=== PATIENT | male | born 1950 | race Two or more races ===

== ENCOUNTER → 2021-03-08 11:13 | Outpatient (CLI) | payer OTHER | END | disposition home or self-care (01) | LOC: LAB 11:13 | PROVIDERS: ATTEND Urology | DX: R97.20 Elevated prostate specific antigen [PSA] (principal) ==

== ENCOUNTER 2021-03-26 06:46 | Outpatient (CLI) | payer OTHER | END 2021-03-26 06:59 | disposition home or self-care (01) | LOC: SONOGRAMA 06:46 | PROVIDERS: ATTEND Urology | DX: C61 Malignant neoplasm of prostate (principal); D29.1 Benign neoplasm of prostate; R97.20 Elevated prostate specific antigen [PSA] ==

== ENCOUNTER 2021-05-03 08:04 | Outpatient (CLI) | payer OTHER ==
[2021-06-02] MEDS ORDERED: AVAPRO150 MG PO (10:35)
[2021-06-02] MEDS ORDERED: TAMS0.4C PO (10:35)
[2021-06-25] MEDS ORDERED: FUSION PLUS CA1 EACH PO (09:04)
== END 2021-05-03 08:05 | disposition home or self-care (01) ==
LOC: NUCLEAR 08:04
PROVIDERS: ATTEND Urology
DX: C61 Malignant neoplasm of prostate (principal); N20.0 Calculus of kidney; N39.0 Urinary tract infection, site not specified
CPT/HCPCS: 78803; A9503

== ENCOUNTER 2021-06-09 07:00 | Day surgery (SDC) | payer OTHER ==
[~2021-06-09 07:00] MED LIST: AVAPRO150 MG PO; TAMS0.4C PO
[2021-06-25] MEDS ORDERED: FUSION PLUS CA1 EACH PO (09:04)
== END 2021-06-10 00:30 | disposition home or self-care (01) ==
LOC: CIR.AMB 07:00
PROVIDERS: ATTEND Urology
DX: N20.1 Calculus of ureter (principal); Z20.822 Contact with and (suspected) exposure to COVID-19

== ENCOUNTER 2021-06-30 05:46 | Inpatient (IN) | payer OTHER ==
[~2021-06-30] VITALS: Ht 172.7 cm; Wt 79.4 kg
[~2021-06-30 05:46] MED LIST changes: +FUSION PLUS CA1 EACH PO
== END 2021-07-02 12:08 | disposition home or self-care (01) | DRG 707 ==
LOC: CIR.AMB 05:46 → SURG 13:59 → O/R 13:59 → SURG 14:08
PROVIDERS: ADMIT Urology; ATTEND Urology
PROC: 07TC0ZZ Resection of Pelvis Lymphatic, Open Approach (ICD-10-PCS; 2021-06-30)
PROC: 0VT30ZZ Resection of Bilateral Seminal Vesicles, Open Approach (ICD-10-PCS; 2021-06-30)
PROC: 0TQ60ZZ Repair Right Ureter, Open Approach (ICD-10-PCS; 2021-06-30)
PROC: 0VT00ZZ Resection of Prostate, Open Approach (ICD-10-PCS; principal; 2021-06-30 07:00)
DX: C61 Malignant neoplasm of prostate (principal); N20.1 Calculus of ureter; I10 Essential (primary) hypertension; Z20.822 Contact with and (suspected) exposure to COVID-19

== ENCOUNTER 2021-07-12 06:22 | Outpatient (CLI) | payer OTHER | END 2021-07-12 06:23 | disposition home or self-care (01) | LOC: LAB 06:22 | PROVIDERS: ATTEND Urology | DX: N20.0 Calculus of kidney (principal); C61 Malignant neoplasm of prostate; N30.00 Acute cystitis without hematuria ==

== ENCOUNTER 2021-07-27 06:31 | Outpatient (CLI) | payer OTHER | END 2021-07-27 06:32 | disposition home or self-care (01) | LOC: LAB 06:31 | PROVIDERS: ATTEND Urology | DX: C61 Malignant neoplasm of prostate (principal) ==

== ENCOUNTER → 2021-08-19 06:18 | Outpatient (CLI) | payer OTHER | END | disposition home or self-care (01) | LOC: LAB 06:18 | PROVIDERS: ATTEND Urology | DX: C61 Malignant neoplasm of prostate (principal); N30.00 Acute cystitis without hematuria ==

== ENCOUNTER → 2022-03-17 08:00 | Outpatient (CLI) | payer OTHER ==
[~2022-03-17] VITALS: Ht 172.7 cm; Wt 79.4 kg
[~2022-03-17 08:00] MED LIST changes: +CRESTOR5 MG PO
== END | disposition home or self-care (01) ==
LOC: LAB 08:00 → ADM 12:45 → CIR.AMB 03-23 09:15 → EDSTATUS 03-23 12:45
PROVIDERS: ATTEND Surgery
DX: Z20.828 Contact with and (suspected) exposure to other viral communicable diseases (principal); Z01.818 Encounter for other preprocedural examination

== ENCOUNTER 2022-03-23 08:03 | Emergency (ER) | payer OTHER ==
[~2022-03-23] VITALS: Ht 172.7 cm; Wt 75.3 kg
== END 2022-03-23 15:13 ==
LOC: ER 08:03
DX: I10 Essential (primary) hypertension (principal); Z20.822 Contact with and (suspected) exposure to COVID-19; E78.00 Pure hypercholesterolemia, unspecified

== ENCOUNTER 2022-09-21 05:58 | Day surgery (SDC) | payer OTHER ==
[~2022-09-21] VITALS: Ht 172.7 cm; Wt 78.0 kg
[~2022-09-21 05:58] MED LIST changes: +CHLORTHALIDONE25 MG PO; +DOXAZOSIN MESYLA1 MG PO
[2022-09-21] MEDS ORDERED: POLY119PG PO (15:24)
[2022-09-21] MEDS ORDERED: ULTRACET PO (15:24)
== END 2022-09-21 19:00 | disposition home or self-care (01) ==
LOC: CIR.AMB 05:58
PROVIDERS: ATTEND Surgery
DX: K40.90 Unilateral inguinal hernia, without obstruction or gangrene, not specified as recurrent (principal); I10 Essential (primary) hypertension; Z20.822 Contact with and (suspected) exposure to COVID-19